=== PATIENT | male | born 1990 | race Hispanic/Latino ===

== ENCOUNTER 2018-11-23 13:20 | Emergency (ER) | payer SELFPAY ==
[2018-11-23] MEDS ORDERED: KETOROLAC TROMETHAMINE INJ 60 MG/2 ML VIAL IM ONE (13:30)
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
[2018-11-23 13:48] VITALS: TEMP 97.8
--- NOTE | 2018-11-23 14:02 | RAD ---
3 radiographs left foot Indication: PAIN FOREFOOT Comparison: None. Impression: Small os peroneumbone. No acute fracture or malalignment. No advanced osteoarthritis. Soft tissues are intact without radiopaque foreign body. Electronically signed by: Reginald Walker MD 11/23/2018 2:00 PM CDT
[2018-11-23 14:23] VITALS: BP 128/77; O2SAT 96
== END 2018-11-23 14:17 | disposition home or self-care (01) ==
LOC: ER 13:20
DX: S93.601A Unspecified sprain of right foot, initial encounter (principal); X58.XXXA Exposure to other specified factors, initial encounter; Z87.828 Personal history of other (healed) physical injury and trauma; Y92.9 Unspecified place or not applicable
CPT/HCPCS: 73630; J1885

== ENCOUNTER 2020-02-12 16:18 | Emergency (ER) | payer SELFPAY ==
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
[2020-02-12] MEDS ORDERED: DEXAMETHASONE 4 MG TAB PO ONE (16:58)
--- NOTE | 2020-02-12 17:11 | RAD ---
EXAM DESCRIPTION: Chest,1 View 02/12/2020 5:08 PM CDT CLINICAL HISTORY: 29 years, Male, covid like symptoms COMPARISON: None. FINDINGS: TECHNIQUE: Frontal view of the chest. LUNGS: Unremarkable. No consolidation. No significant alveolar and/or interstitial infiltrates. PLEURAL SPACE: Unremarkable. No pneumothorax. HEART: Unremarkable. No cardiomegaly. MEDIASTINUM: Unremarkable. BONES/JOINTS: Degenerative changes. VASCULATURE: Calcification of the aorta. IMPRESSION: NO ACUTE CARDIOPULMONARY DISEASE IS SEEN. Electronically signed by: Ayan Amanda MD 02/12/2020 5:09 PM CDT
[2020-02-12 17:32] VITALS: BP 122/84; TEMP 98.4; O2SAT 96
== END 2020-02-12 17:20 | disposition home or self-care (01) ==
LOC: ER 16:18
DX: B34.9 Viral infection, unspecified (principal); J06.9 Acute upper respiratory infection, unspecified; R05 Cough; Z20.828 Contact with and (suspected) exposure to other viral communicable diseases; F17.200 Nicotine dependence, unspecified, uncomplicated
CPT/HCPCS: 71045; 87070; 87502; 87635; 87880; J8540